=== PATIENT | female | born 2005 | race Caucasian/White ===

== ENCOUNTER 2025-02-04 08:07 | Outpatient (REF) | payer BC, SELFPAY ==
--- OUTSIDE RECORDS SUMMARY | 2025-02-04 09:10 | XMS_ITS | Encounter Summary ---
Author Organization [facility] Address [address] [place] [address] Phone Care Team Providers Care Institute Scientist Name Role Phone Leisa De Jesus MD Primary Care Provider [phone] Encounter Details Date Type Department Care Team (Late st Contact Info) Description 01/17/2016 Documentation [facility] Family Medicine [address] [place], [place] [id number] Family Medicine, Physician [address] [place], [place] [address] Social History Tobacco Use Types Packs/Day Years [...] on filedocumented in this encounter Care Teams Institute Scientist Relationship Specialty Start Date End Date Leisa De Jesus MD [address] [place] [address] PCP - General Pediatrics 04/14/19 05/28/24 documented as of this encounter
--- OUTSIDE RECORDS SUMMARY | 2025-02-04 09:10 | XMS_ITS | Clinical Summary ---
Author Organization [facility] Address [address] [place] [id number] Phone Care Team Providers Care Call Worker Name Role Phone Unavailable Primary Care Provider [...] Continue to follow with [facility], Margaret Noel HOUSE PARENT for further support/help. Assessment & Plan (07/18/2022 10:14 AM EDT): Patient with decreased motivation and energy in the context of poor sleep. Patient will benefit from using sleep hygiene strategies and short term intervention with [facility]. Patient is ready to address these issues. Strengths include insight and motivation. PLAN: 1. Follow up with [facility] 3 weeks 2. Patient goal is to [...] hygiene strategies and short term intervention with [facility]. Patient is ready to address these issues. Strengths include insight and motivation. PLAN: 1. Follow up with [facility] 2 weeks 2. Patient goal is to sleep better and improve energy and motivation. 3. Behavioral Recommendations: a. Review sleep tips b. Practice good self care including eating and exercise c. Keep follow up with [facility] Assessment & Plan (08/12/2021 1:52 PM EDT): [...] stop it. I will cc Margaret Noel, [facility], who sees Katty and they have [...] Margaret Noel- I will have the front office agent call mom to schedule these appts. Assessment [...] ibuprofen and soft brace. Has appointment at [facility] early Jul. ADHD (attention deficit hyperactivity disorder) [...] Type Department Care Team Description 01/22/2025 Telephone [facility] - [address] [address] Sapna Larsen MD Medical Records [...] Father Rocky Armendariz Sleep apnea Father Rocky Vasquezdeborah Anxiety disorder Mother Eden Solorzano has use d fluoxetine with good effect ADD / ADHD Sister Narcisa Armendariz Anxiety disorder Sister Narcisa Armendariz Relation Name Status Comments Father Rocky Armendariz Alive Father: Manuel pro and andrew, Asthma Maternal Grandfather Materna l grandfather: Diabetes mellitus, Liver disease Mother Eden Solorzano Alive Mother: Emmy shaw and well Other No family histo ry of Sudden /[place] under age 55, No family history of *Sudden /[place] under 55, No family history of Thrombophilia, [...] Completed 07/14/2019, 014 Procedures * Due to [place] state law, this organization might not be sharing sensitive test results. Procedure Name Priority Date/Time Associated Diagnosis Comments CHLAMYDIA AND GONORRHEA, AMPLIFIED Routine 08/12/2021 2:09 PM EDT Well adult exam from Last 3 Months or Most Recently Relevant to Health Maintenance Results * Due to [place] state law, this organization might not be sharing sensitive test results. * Chlamydia and Gonorrhoea, Amplified (08/12/2021 2:09 PM EDT) Chlamydia Trachomatis, DNA Probe NEGATIVE (NEG) [facility] Comment: No Chlamydia Trachomatis RNA detected in this patient's sample ? (REFERENCE RANGE/NORMAL VALUE: NOT DETECTED) ? Note: This test uses college associate- mediated amplification method to detect rRNA from C. Trachomatis URINE GC AMP PROBE NEGATIVE (NEG) [facility] Comment: No Neisseria Gonorrhoeae RNA detected in this patient's sample ? (REFERENCE RANGE/NORMAL VALUE: NOT DETECTED) ? NOTE: This test uses college associate-mediated amplification method to detect rRNA from N.Gonorrhoeae. [...] without risk of sexual abuse. Consult the [facility] if needed. Contact phone number . Therapeutic failure or success cannot be determined with the Aptima Combo2 assay since nucleic acid may persist following appropriate antimicrobial therapy. The Centers for Disease Control and Prevention (CDC) recommends confirmatory retesting using culture or a different nucleic acid amplification test when positive results occur, if indicated. Testing performed or reported by [facility], a Service of [facility], [address] [place] [address] Pete Connell MD, Digital Sales Representative [facility]# [id number] Urine 08/12/2021 2:09 PM EDT 08/12/2021 11:13 PM EDT us Leisa De Jesus MD LAB MICROBIOLOGY - GENERAL OR DERABLES Final Result [facility] from Last 3 Months or Most Recently Relevant to Health Maintenance
--- OUTSIDE RECORDS SUMMARY | 2025-02-04 09:11 | XMS_ITS | Encounter Summary ---
Author Organization [facility] Address [address] [place] [address] Phone Care Team Providers Care Installation Supervisor Name Role Phone Leisa De Jesus MD Primary Care Provider [phone] Encounter Details Date Type Department Care Team (Late st Contact Info) Description 04/30/2017 Documentation [facility] [address] [place], [place] [id number] Family Medicine, Physician [address] [place], [place] [address] Social History Tobacco Use Types Packs/Day Years [...] on filedocumented in this encounter Care Teams Installation Supervisor Relationship Specialty Start Date End Date Leisa De Jesus MD [address] [place] [address] PCP - General Pediatrics 04/14/19 05/28/24 documented as of this encounter
[2025-02-04 10:01] LABS: MANUAL DIFF FLAG NO
[2025-02-04 10:09] LABS: Basophils Percent Auto 0.5 % (0-2); Eosinophils Absolute Auto 0.1 X10*3/uL (0.0-0.4); Eosinophils Percent Auto 1.6 % (0-4); Hematocrit 41.4 % (37.0-47.0); Hemoglobin 13.5 g/dl (12.0-16.0); Imm Gran Abs Auto 0.03 X10*3/uL (0.00-0.03); Imm Gran Pct Auto 0.3 % (0.0-0.4); Lymphocytes Absolute Auto 1.9 X10*3/uL (1.2-4.9); Lymphocytes Percent Auto 21.6 % (20-40); Mean Corpuscular HGB Conc 32.6 g/dl (31.0-35.0); Mean Corpuscular Hemoglobin 27.9 pg (27.0-33.0); Mean Corpuscular Volume 85.5 fL (80.0-98.0); Mean Platelet Volume 9.9 fL (9.4-12.3); Monocytes Absolute Auto 0.5 X10*3/uL (0.1-1.2); Monocytes Percent Auto 5.8 % (2-11); Neutrophils Absolute Auto 6.2 x10*3/uL (2.0-8.3); Neutrophils Percent Auto 70.2 % (45-73); Platelet Count 253 X10*3/uL (160-400); Red Blood Count 4.84 X10*6/uL (4.20-5.50); Red Cell Distribution Width 13.7 % (11.0-16.0); White Blood Count 8.8 X10*3/uL (4.8-10.8)
[2025-02-04 10:45] LABS: Alanine Aminotransferase 36 U/L (0-31); Albumin Level 4.3 g/dL (3.5-5.0); Alkaline Phosphatase 71 U/L (39-117); Anion Gap 13 (12-20); Aspartate Amino Transferase 30 U/L (5-31); Bilirubin Total 0.6 mg/dL (0.0-1.0); Blood Urea Nitrogen 12 mg/dL (9-16); Calcium 9.2 mg/dL (8.4-10.2); Carbon Dioxide 25 mmol/L (22-29); Chloride 107 mmol/L (96-108); Cholesterol 136 mg/dL (<200); Estimated Glomerular Filt Rate > 60; Glucose Fasting 85 mg/dL (60-99); HDL Cholesterol 36 mg/dL (>40); LDL Cholesterol Calculated 84 mg/dL (<100); Potassium 3.7 mmol/L (3.3-5.1); Sodium 141 mmol/L (135-145); Total Protein 7.6 g/dL (6.5-8.0); Triglycerides 81 mg/dL (<150)
== END 2025-02-04 08:08 | disposition home or self-care (01) ==
LOC: HO.HMGCLDS 08:07
PROVIDERS: PCP Internal Medicine; Visit Provider Internal Medicine
DX: Z00.00 Encounter for general adult medical examination without abnormal findings (principal); F90.9 Attention-deficit hyperactivity disorder, unspecified type
CPT/HCPCS: 36415; 80053; 80061; 85025; 96127

== ENCOUNTER 2025-02-04 08:07 | Outpatient (AMB) | payer BC, SELFPAY ==
[2025-02-04 08:09] VITALS: BP 108/66; PULSE 83; RESP 20; TEMP 37.1; O2SAT 99; BMI 40.1
--- NOTE | 2025-02-04 08:09 | MHC.PC.OV ---
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 Intake Note: Pt is here today for New patient visit PE. 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 HPI Details Pt presents for [facility] SPECIALIST PE. [facility] Medical History (Updated 02/04/25 @ 12:43 by Radha Cardoza MD) Normal pelvic exam Annual physical exam ADHD (attention deficit hyperactivity disorder) Surgical History [place] teeth extracted Family History Father No problems noted. Mother No problems noted. 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 1. Little interest or pleasure in doing things: several days 2. Feeling down, depressed, or hopeless: not at all 3. Trouble falling or staying asleep, or sleeping too much: several days 4. Feeling tired or having little energy: more than half the days 5. Poor appetite or overeating: not at all 6. Feeling bad about yourself - or that you are a failure or have let yourself or your family down: not at all 7. Trouble concentrating on things, such as reading the newspaper or watching television: nearly every day 8. Moving or speaking so slowly that other people could have noticed. Or the opposite - being so fidgety or restless that you have been moving around a lot more than usual: not at all 9. Thoughts that you would be better off or of hurting yourself in some way: not at all Total score: 7 Depression Screening Interpretation: Negative Depression Screening Done: Yes 52940 - PHQ-9 Billing: Yes Source: Developed by Drs. Renan Reyez, Nasima Duarte, Wilberto Robles and colleagues, with an educational aman from [employer]. Thrive Questionnaire Date Thrive assessed: 02/04/25 I am a: Patient What is your living situation today?: I have a steady place to live Within the past 12 months, did the food you bought not last and you didn't have the money to get more?: Never true Within the past 12 months, did you worry whether your food would run out before you got money to buy more?: Never true Do you have trouble paying for medicines?: No Do you have trouble getting transportation to medical appointments?: No Do you have trouble paying your heating and electricity bill?: No Do you have trouble taking care of your child, family member or friend?: No Do you have trouble with day-to-day activities such as bathing, preparing meals, shopping, managing finances, etc.?: No Are you currently unemployed and looking for a job?: No Are you interested in more education?: Yes Please select the resources that you would like help with: None Currently or been in a relationship where the following occur: No concerns reported THRIVE Score: 0 AUDIT C Alcohol Use Questionnaire (AUDIT-C) 1. How often do you have a drink containing alcohol?: 2-4 times a month 2. How many drinks containing alcohol do you have on a typical day when you are drinking?: 3 or 4 3. How often do you have six or more drinks on one occasion?: Less than monthly Total Score: 4 NYASIA-7 AMB Questionnaire NYASIA-7 Date NYASIA - 7 assessed: 02/04/25 Feeling nervous, anxious, or on edge: 3 = Nearly every day Not being able to stop or control worryin = Nearly every day Worrying too much about different things: 3 = Nearly every day Trouble relaxin = Nearly every day Being so restless that it is hard to sit still: 3 = Nearly every day Becoming easily annoyed or irritable: 1 = Several days Feeling afraid as if something awful might happen: 2 = More than half the days Total NYASIA-7 score (0-4 normal; 5-9 mild; 10-14 moderate; 15-21 severe): 18 Source: Developed by Drs. Renan Reyez, Nasima Duarte, Wilberto Robles and colleagues, with an educational aman from [employer]. NYASIA-7 Assessment Billing NYASIA-7 Assessment Tool: NYASIA-7 Assessment 66817 Review of Systems Const All systems reviewed & are unremarkable except as noted in HPI and below Reports no additional complaints Eyes Reports no additional complaints ENT Reports no additional complaints Card Reports no additional complaints Resp Reports no additional complaints GI Reports no additional complaints Reports no additional complaints Physical exam (Primary Care) Vital Signs: Last Vital Signs Temp 98.7 F 02/04/25 08:09 Pulse 83 02/04/25 08:09 Resp 20 02/04/25 08:09 BP 108/66 02/04/25 08:09 Pulse Ox 99 02/04/25 08:09 Oxygen Delivery Method Room Air 02/04/25 08:09 BMI result Body Mass Index 40.1 Tobacco/Smoking Status: Tobacco use Status Tobacco use date assessed 02/04/25 02/04/25 08:21 Patient Tobacco Use Status Current everyday Tobacco 02/04/25 08:34 e-Cigarette/Vaping Use Currently Using 02/04/25 08:34 PHQ-9: PHQ-9 Score PHQ-9: Total score 7 02/04/25 08:31 Depression Screening Interpretation: Negative Thrive Assessment: Date of Thrive Assessment Date Thrive assessed 02/04/25 02/04/25 08:21 Currently or been in a relationship where the following occur: No concerns reported Const General: no acute distress HENMT Head: Yes normal to inspection Ears: hearing grossly normal bilaterally General nose exam: Normal external nose present Face and sinus: Yes normal facial exam Mouth: Normal oral and palatal mucosa present Throat: Yes posterior oropharynx normal Eyes General: appearance normal, both eyes and all related structures Neck Neck: Yes no lymphadenopathy and Yes supple Resp Effort & Inspection: normal respiratory effort Auscultation: clear to auscultation bilaterally Cardio Rhythm: regular rhythm Heart sounds: S1 normal heart sound present and S2 normal heart sound present GI Inspection: Yes normal to inspection Palpation (GI): Soft to palpation Percussion: Yes normal to percussion Auscultation: normal bowel sounds Coding Level of Care Code Est Pt Prev Care 18-39y(71630) Diagnoses Annual physical exam Z. Normal pelvic exam Z. ADHD (attention deficit hyperactivity disorder) F90.9 Additional Codes NYASIA-7 Assessment Billing - NYASIA-7 Assessment Tool: NYASIA-7 Assessment 70861 ([id number]) PHQ-9 - 65383 - PHQ-9 Billing: Yes ([id number]) Assessment & Plan Assessment & Plan (1) Annual physical exam: Code(s): Z. - Encounter for general adult medical examination without abnormal findings Category: Medical Plan: Well-balanced diet regular physical activity discussed with the patient she will return for fasting blood work (2) Normal pelvic exam: Comment: [employer] 2023 Code(s): Z - Encounter for gynecological examination (general) (routine) without abnormal findings Category: Medical Plan: Follow-up with GI (3) ADHD (attention deficit hyperactivity disorder): Comment: Used to take medication Code(s): F90.9 - Attention-deficit hyperactivity disorder, unspecified type Category: Medical Plan: Follow-up with ADHD Clinic as needed Orders: Orders Comprehensive Allen. Panel Fast Today Z00.00 - Encounter for general adult medical examination without abnormal findings, Z419 - Encounter for gynecological examination (general) (routine) without abnormal findings Lipid Panel Today Z00.00 - Encounter for general adult medical examination without abnormal findings, Z419 - Encounter for gynecological examination (general) (routine) without abnormal findings Complete Blood Count Auto Diff Today Z00.00 - Encounter for general adult medical examination without abnormal findings, Z419 - Encounter for gynecological examination (general) (routine) without abnormal findings UA w Microscopic Today Z00.00 - Encounter for general adult medical examination without abnormal findings, Z419 - Encounter for gynecological examination (general) (routine) without abnormal findings
--- OUTSIDE RECORDS SUMMARY | 2025-02-04 08:16 | XMS_ITS | Encounter Summary ---
Author Organization [facility] Address [address] [place] [address] Phone Care Team Providers Care District Customs Director Name Role Phone Leisa De Jesus MD Primary Care Provider [phone] Encounter Details Date Type Department Care Team (Late st Contact Info) Description 01/17/2016 Documentation [facility] Family Medicine [address] [place], [place] [id number] Family Medicine, Physician [address] [place], [place] [address] Social History Tobacco Use Types Packs/Day Years Used Date Smoking Tobacco: Never Assessed Comments Unknown Sex and Gender Information Value Date Recorded Sex Assigned at Female 07/14/2019 2:13 PM EDT Legal Sex Female 5:16 PM EDT Gender Identity Female 07/14/2019 2:13 PM EDT Sexual Orientation Bisexual 10/26/2022 10 :41 AM EST documented as of this encounter Plan of Treatment Not on file documented as of this encounter Visit Diagnoses Not on filedocumented in this encounter Care Teams District Customs Director Relationship Specialty Start Date End Date Leisa De Jesus MD [address] [place] [address] PCP - General Pediatrics 04/14/19 05/28/24 documented as of this encounter
--- OUTSIDE RECORDS SUMMARY | 2025-02-04 08:16 | XMS_ITS | Encounter Summary ---
Author Organization [facility] Address [address] [place] [address] Phone Care Team Providers Care Arc And Gas Welder Name Role Phone Leisa De Jesus MD Primary Care Provider [phone] Encounter Details Date Type Department Care Team (Late st Contact Info) Description 04/30/2017 Documentation [facility] [place] [address] [place], [place] [id number] Family Medicine, Physician [address] [place], [place] [id number] Social History Tobacco Use Types Packs/Day Years Used Date Smoking Tobacco: Never Comments:Never smoker Comments Unknown Sex and Gender Information Value [...] on filedocumented in this encounter Care Teams Arc And Gas Welder Relationship Specialty Start Date End Date Leisa De Jesus MD [address] [place] [address] PCP - General Pediatrics 04/14/19 05/28/24 documented as of this encounter
--- OUTSIDE RECORDS SUMMARY | 2025-02-04 08:16 | XMS_ITS | Clinical Summary ---
Author Organization [facility] Address [address] [place] [phone] Phone Care Team Providers Care Striper Spray Gun Name Role Phone Unavailable Primary Care Provider Unavailabl e Allergies No known active allergies Medications Nexplanon 68 MG implant 0 Active IBUPROFEN PO Take 600 mg by mouth. Active hydrocortisone 2.5 % ointmentIndicat ions:Rash on lips Apply topically 2 (two) times a day as needed for rash. 20 g 1 3 Active Additional Information Patient not taking.Reported on 12/26/2022 escitalopram (Lexapro) 10 MG tabletIndicatio ns:Adjustment disorder with mixed anxiety and depressed mood Take 1 tablet (10 mg total) by mouth every morning. 30 tablet 1 3 Active hydrOXYzine 25 MG tabletIndicatio ns:Adjustment disorder with mixed anxiety and depressed mood,Sleep concern Take 1-2 tablets (25-50 mg total) by mouth nightly as needed for anxiety (insomnia). Use prior to bedtime - this will help with itching and sleep. 30 tablet 1 4 Active Active Problems Problem Noted Date Diagnosed Date Nicotine use 10/26/2022 Overview (03/15/2023): 10/30- vaping daily. Counseled (pre-contemplative) and recommended [facility] - she will think about it and let me know if she's interested so I can place the referral. 03/15/2023- [facility] referral. Assessment & Plan (10/26/2022 11:06 AM EST): Counseled today re risks, which she expressed understandingn about, but still in pre-contemplative stage. I recommended [facility] - she will think about it and let me know if she's interested so I can place the referral. Low HDL (under 40) 09/07/2021 Overview (09/07/2021): 08/28- HDL 35, other lipids nl. Snoring 08/12/2021 Overview (02/10/2022): With difficulty waking in the morning. Dad with GLENNY. 02/01/22- PSG without GLENNY. Assessment & Plan (08/12/2021 1:57 PM EDT): PSG ordered today. Nexplanon in place 01/08/2020 Overview (01/08/2020): Placed at [facility] 01/08/20. Assessment & Plan (07/20/2022 8:54 AM EDT): Happy with Nexplanon, asking about when she'll need to have it removed. Assessment & Plan (08/05/2020 3:18 PM EDT): Going well, amenorrhea, happy with this. Allergic rhinitis 12/01/2019 Overview (12/01/2019): Flonase trial 11/27 Dysmenorrhea 07/14/2019 Overview (08/05/2020): NSAIDs and heating pads. H/o OCPs, but no significant improvement, off them early 2018. Improved with Nexplanon. Assessment & Plan (07/20/2022 9:04 AM EDT): Much improved with Nexplanon. Assessment & Plan (08/05/2020 3:59 PM EDT): Much better with Nexplanon. Adjustment disorder with mixed anxiety and depre ssed mood 09/10/2018 Overview (04/13/2023): Seasonal- late fall-early Spring. Saw a therapist at school, but inconsistently. Barrier is related to in-school and in-home therapy needs. Was on fluoxetine 11/06/18 through January 2019 with significant improvement in mood, but self-discontinued. Fluoxetine re-started 08/27, weaned off 01/26. Started seeing Margaret Noel MANNY 09/26 (learn coping skills such as relaxation, sleep hygiene), with significant improvement. Fluoxetine re-started 07/29. 12/26/21- wean off fluoxetine per Katty preference. Still not interested in therapy, will call if that changes. 03/15/2023- started on Lexapro (with improvement), referred to [facility] again (but unable to keep appt due to work schedule) 07/06/22 consult for sleep. Full Evaluation scheduled. Assessment & Plan (04/13/2023 12:57 PM EDT): Katty is happy with the Lexapro at 10mg, and would like to continue at this dose. Rx done for Lexapro 10mg qday. Unlikely to follow through with [facility] referral due to schedule limitations, but she says she's looking into other options for therapy. F/u with me in ~2 months with GAD7 and PHQ9. Assessment & Plan (03/15/2023 12:40 PM EDT): After counseling the patient/family on risks and benefits of SSRIs, we will start sertraline at a trial dose of 12.5mg/day for a week, then I will have them called by a staff member in a week, and if they are tolerating the test dose well, without any significant side effects, we will double the dose to 25mg/day. The family knows to call immediately for significant side effects, especially significant agitation or any new thoughts about self-harm. F/u with me virtually in 4 weeks- appt 04/13/23 @ 12:45pm. Referred again to [facility] as interested in virtual counseling and I strongly encouraged it today, especially to cope with stressors as well as given daily vaping. Assessment & Plan (02/20/2023 3:12 PM EDT): Doing okay, though still with significant stressors. Encouraged therapy again, and she says she's looking into this. Not interested in meds at this time. Assessment & Plan (12/26/2022 8:45 AM EDT): While she doesn't think the fluoxetine is doing much, her GAD7 and PHQ9 scores are so significantly improved. She wants to stop the fluoxetine, and so we discussed weaning off of it (going down to 20mg/day x1 week, then 10mg/day x1 week, then off). Discussed following up, and she prefers not to make an appt and instead to call if she needs anything. Also discussed psychotherapy again, and she prefers to hold off, and she's aware she can call if she's interested at some point. Assessment & Plan (10/26/2022 11:05 AM EST): Doing well on fluoxetine, no SEs, but does feel like she could use a higher dose, so will increase to 30mg/day. F/u 2 months with GAD7 and PHQ9. Also encouraged psychotherapy, and recommended [facility]. She will think about it and let me know if she's interested so I can place the referral. Assessment & Plan (07/20/2022 9:04 AM EDT): After counseling Katty on risks and benefits of SSRIs, we will start fluoxetine at 20mg/day for a week (she has been on this dose multiple times in the past and it works well for her), then I will have her called by a staff member in 2 weeks to check on her. She knows to call immediately for significant side effects, especially significant agitation or any new thoughts about self-harm. F/u with me in ~4 weeks. Continue to follow with [facility], Margaret Noel HEAD CHOPPER for further support/help. Assessment & Plan (07/18/2022 10:14 AM EDT): Patient with decreased motivation and energy in the context of poor sleep. Patient will benefit from using sleep hygiene strategies and short term intervention with [facility]. Patient is ready to address these issues. Strengths include insight and motivation. PLAN: 1. Follow up with [facility] 3 weeks 2. Patient goal is to sleep better and improve energy and motivation. 3. Behavioral Recommendations: a. Review sleep tips b. Practice good self care including eating and exercise c. Try meditation apps Assessment & Plan (07/06/2022 10:27 AM EDT): Patient with decreased motivation and energy in the context of poor sleep. Patient will benefit from using sleep hygiene strategies and short term intervention with [facility]. Patient is ready to address these issues. Strengths include insight and motivation. PLAN: 1. Follow up with [facility] 2 weeks 2. Patient goal is to sleep better and improve energy and motivation. 3. Behavioral Recommendations: a. Review sleep tips b. Practice good self care including eating and exercise c. Keep follow up with [facility] Assessment & Plan (08/12/2021 1:52 PM EDT): Doing really well right now, off fluoxetine. Assessment & Plan (02/14/2021 11:43 AM EDT): Katty is really doing well, now off the fluoxetine for several weeks. Continue off the fluoxetine. I'm proud of her for making the changes she's made (sleep, meditation, exercise), and will continue to support her in these and any further needs. She is due for a well visit in July, and I offered a f/u appt sooner to check in, but she feels she is doing well and she'd rather just call if she feels she needs that. Assessment & Plan (12/30/2020 12:10 PM EDT): Katty is really doing well, which is great and she is interested in trialing off of her SSRI. We discussed need to wean it, so she plans to take one more week at her current dose (20mg) and then I ordered 7 days of fluoxetine 10mg that she should take, and then she will stop it. I will cc Margaret Noel, [facility], who sees Katty and they have an upcoming appt 01/13/21. I'm proud of her for making the changes she's made (sleep, mediation), and will continue to support her in these and any further needs. We made a f/u appt in about 6 weeks (02/14/21) and I will repeat GAD7 and PHQ9 at that time. Assessment & Plan (10/28/2020 11:40 AM EST): I am really proud of changes Katty has made around exercise and sleep and an overall healthier lifestyle. I did discuss a goal of even more sleep if she can move her bedtime back another hour (given she's waking up so early and should try to get 8-9 hours of sleep per night). We discussed meditation again, which she is thinking she may start soon. She will continue to see LATHA Arrington, learning coping skills, including relaxation, and communication skills. Next visit with her is on 11/18/20. Katty is doing well on fluoxetine 20mg, no SEs identified and mood has improved significantly (significant decrease in her anxiety and depression). Continue fluoxetine 20mg, last Rx done 10/13/20, so Katty will call when due for next Rx. f/u 2 months for virtual med check appt- Katty aware to call for this appt as soon as we are off the virtual visit. Assessment & Plan (09/06/2020 2:54 PM EST): Patient is doing well on the low-dose fluoxetine, no SEs identified and mood has improved some already. Will increase dose to 20mg, f/u 2 weeks for virtual med check appt- patient aware to call for this appt as soon as we are off the virtual visit. We discussed meditation, and she is interested in this. I recommended apps where she can do a free trial (as all seem to make you pay eventually), so she should try this daily. Patient has appt with LATHA Arrington, on Sunday. Assessment & Plan (08/19/2020 11:47 AM EST): After counseling the patient/family on risks and benefits of SSRIs, we will start fluoxetine at a trial dose of 10mg/day for a week, then I will have them called by Sharon Malik in a week to check on them. The family knows to call immediately for significant side effects, especially significant agitation or any new thoughts about self-harm. F/u with me virtually in 2 weeks. Given mom's concerns about patient able to take med daily but patient doesn't want mom asking her about it, patient agrees to keep a calendar to ashley off taking med each day. I can also see this at our visits. Patient also to make appt with Margaret Noel- I will have the front end engineer call mom to schedule these appts. Assessment & Plan (08/05/2020 4:01 PM EDT): Significant depression (and likely anxiety) today. No active SI. Discussed pharmacotherapy, open to this, though not currently. Discussed psychotherapy/counseling- will refer to [facility]. Advised to make appt with me (virtual) to discuss re-started SSRI if interested). Referral to [facility] for further support/help with behaviors- warm hand-off done with Margaret Noel and patient aware to schedule appt with her. Help address Anxiety, Evaluate for Depression, Needs help with coping skills, Family disruption - needs support Assessment & Plan (07/14/2019 2:25 PM EDT): Stopped the fluoxetine ~6 months ago. It was helpful, but she was curious if it would be okay without the medication. She's happy with how she's doing and isn't interested in re-starting the medications. No SI, cutting. No access to guns. Of note, PHQ9 = 8 today. Assessment & Plan (12/30/2018 12:44 PM EDT): Has continuous improvement in symptoms. NYASIA score down from highest of 14 to 5 today. Denies any side effects. Continue to search for regular therapist. ( Insurance is a barrier, many mental health providers don't accept [employer]) Continue Prozac at 10 mg daily. Follow up in 6 months with new PCP for repeat evaluation. Assessment & Plan (12/09/2018 11:15 AM EST): Symptoms are improving. NYASIA score trending down from 14 to 8. Increase prozac to 10 mg daily ( up from 10 mg every other day), if you note agitation go back to 10 mg every other day. Follow up in 1 month for repeat NYASIA screen. Assessment & Plan (11/06/2018 11:22 AM EST): Starting Prozac today 10 mg every other day. Discussed potential side effects and black box warning. Advised parents to call with update in 2 weeks (or sooner if needed) follow up in 1 month for re-evaluation. Continue self management strategies and seeing therapist in school. Pain in both knees 06/30/2017 Overview (07/14/2019): PHYSICAL THERAPY. Just has intermittent pain now. 07/26. Assessment & Plan (06/30/2017 2:48 AM EDT): Better with ibuprofen and soft brace. Has appointment at [facility] early Jul. ADHD (attention deficit hyperactivity disorder) 08/26/2015 Overview (07/14/2019): Used meds when she was young, improved a lot as a teenager. Self-manages symptoms. 07/26 BMI 36.0-36.9,adult 08/13/2012 Overview (09/07/2021): Labs ok 07/26, 08/28 (other than low HDL). Weight decreasing with some lifestyle (and mood) changes . Assessment & Plan (02/14/2021 11:42 AM EDT): Katty has made some great healthy choices- less fast food and sugary drinks, eating more meals as opposed to snacking, and I continued to encourage these as well as really limiting the sugary and artificially sweetened drinks. Will continue to follow and check labs in the fall at her well visit. Assessment & Plan (08/05/2020 3:25 PM EDT): Discussed limiting sugary drinks. I think her poor diet and lack of exercise are tied into her depression and anxiety, so difficult to do much about right now. Assessment & Plan (07/14/2019 2:22 PM EDT): Discussed cutting out soda, also cutting down on ice cream. Limited physical activity, will walk/run with dog at Patient's father's house. Will screen for DM, dyslipidemia and NAFLD with AST/ALT per AAP recs. Plan to screen q2yrs if continues to be obese. Assessment & Plan (09/10/2018 10:48 AM EST): Eliminate sugary drinks. PTSD (post-traumatic stress disorder) 08/10/2010 Resolved Problems Problem Noted Date Diagnosed Date Resolved Date Excessive and frequent menst ruation with irregular cycle 04/03/2017 07/14/2019 Assessment & Plan (09/11/2018 8:59 AM EST): Having break through bleeding on low estrogen pill will change in higher dose of estrogen 0.35 up from 0.25 of estradiol. Encounters Date Type Department Care Team Description 01/22/2025 Telephone [facility] - [address] [address] Sapna Larsen MD Medical Records from Last 3 Months Immunizations Immunization Administration Dates Next Due COVID-19 Pfizer, bivalent, 12+ years 07/20/2022 COVID-19 Pfizer, monovalent, 12+ years 1,08/12/2021 DTaP 5 07/02/2007, 5,2003,09/10,2003 H1N1 10/28/2009,08/30/2009 HPV Vaccine 9 Valent 10/06/2016,03/17/2016,01/10 Hep A, ped/adol 03/17/2016,08/26/2015 Hep B, ped/adol 02/18/2004,2003,2003 Hib (HbOC) 08/30/2004 Hib (PRP-T) 2003,2003,2003 IPV 07/02/2007, 4,2003,07/14 Influenza Split 08/07/2011 Influenza, injectable, quadr ivalent, preservative free 07/20/2022,08/12/2021,08/05/2020,07/14,09/10/2018,10/06/2016,08/26/2015 Influenza, injectable, trivalent 009,07/08/2008,07/02/2007,09/18,11/15/2004,08/30/2004 Influenza, intranasal, quadrivalent 06/09/2014,1 11/24/2012 Influenza, intranasal, trivalent 07/04/2012,/0 02/2010 MMR 06/01/2004 MMRV 07/02/2007 Meningococcal Conj (Menactra) MCV4P 07/14/2019,0 06/09/2014 Pneumococcal Conjugate 08/30/2004,2003,2003,07/14 Tdap 06/09/2014 Varicella 06/01/2004 Family History Medical History Relation Name Comments ADD / ADHD Father Rocky Armendariz Sleep apnea Father Rocky Vasuqezdeborah Anxiety disorder Mother Eden Solorzano has use d fluoxetine with good effect ADD / ADHD Sister Narcisa Armendariz Anxiety disorder Sister Narcisa Armendariz Relation Name Status Comments Father Rocky Armendariz Alive Father: Manuel pro and andrew, Asthma Maternal Grandfather Materna l grandfather: Diabetes mellitus, Liver disease Mother Eden Solorzano Alive Mother: Emmy shaw and well Other No family histo ry of Sudden /PA under age 55, No family history of *Sudden /PA under 55, No family history of Thrombophilia, Family history of Heart disease, No family history of *Thrombophilia, Family history of CVA (Stroke), No family history of Deafness, No family history of Dental caries, No family history of Seizure disorder, No family history of Developmental dislocation of hip, No family history of Strabismus, Family history of Migraines, Family history of Cancer, lung, Family history of Obesity, No family history of Hyperlipidemia Paternal Grandfather Paterna l grandfather: ETOH, Paternal Grandmother Paterna l grandmother: Diabetes mellitus Sister Narcisa Armendariz Alive Sister: Manuel pro and andrew Social History Tobacco Use Types Packs/Day Years Used Date Smoking Tobacco: Never Smokeless Tobacco: Never Comments:Never smoker Alcohol Use Standard Drinks/Week Comments No 0 (1 standard drink = 0.6 oz pur e alcohol) Hunger/Food Answer Date Recorded In the last 12 months, did y ou or your family ever eat less than you felt you should because there wasn't enough money for food? No 10/25/2022 Stable Housing Answer Date Recorded Are you worried that in the next 2 months you may not have stable housing? No 10/25/2022 Transportation Concerns Answer Date Rec orded In the last 12 months, have you or your family ever had to go without healthcare because you didn't have a way to get there? No 10/25/2022 Hazards in Home Answer Date Recorded Think about the place you li ve. Do you have problems with any of the following? Pests (mice or roaches), mold, no/not working smoke detectors, water leaks, no window guards. No 2022 Financing Utilities Answer Date Recorde d In the last 12 months, has t he electric, gas, oil, or water company threatened to shut off your services in your home? No 10/25/2022 Safety at Home Answer Date Recorded Are you or your family worried about feeling saf e in your home? No 10/25/2022 Outside Support Answer Date Recorded Do you feel that you need mo re support from other people or programs to help you care for yourself or your family? No 10/25/2022 Understanding Health Concerns Answer Da te Recorded Do you need help understandi ng your or your child's healthcare needs (diagnosis, medications, plan, etc.)? No 10/25/2022 Financing Health Concerns Answer Date R ecorded In the last 12 months, was t here a time when your child needed to see a doctor or get medications or supplies but could not because of cost? No 10/25/2022 Missing School or Work Answer Date Riley rded Did you or your child miss s chool or work because of a health problem that could have been avoided? No 10/25/2022 Comments No Sex and Gender Information Value Date Recorded Sex Assigned at Female 07/14/2019 2:13 PM EDT Legal Sex Female 5:16 PM EDT Gender Identity Female 07/14/2019 2:13 PM EDT Sexual Orientation Bisexual 10/26/2022 10 :41 AM EST Last Filed Vital Signs Vital Sign Reading Time Taken Comments Blood Pressure 130/72 01/12/2023 3:38 PM EDT man ual Pulse 118 01/12/2023 3:37 PM EDT Temperature 37 ??C (98.6 ??F) 02/20/2023 2:46 PM EDT Respiratory Rate - - Oxygen Saturation - - Inhaled Oxygen Concentration - - Weight 111 kg (244 lb 12.8 oz) 02/20/2023 2:46 P M EDT Height 168.9 cm (5' 6.5 ) 10/26/2022 10:03 AM ES T Body Mass Index 38.92 10/26/2022 10:03 AM EST Plan of Treatment Health Maintenance Due Date Last Done Comments Men B Vaccine (1 of 2 - Standard) 2019 Influenza Vaccines (#1) 2024 07/20/20, 08/12/2021, 08/05/2020, Additional history exists COVID-19 Vaccine (4 - 2023-2 5 season) 2024 07/20/2022, 09/05/2021, 08/12/2021 DTaP,Tdap,and Td Vaccines (7 - Td or Tdap) 06/09/2024 06/09/2014, 07/02/2007, 11/15/2004, Additional history exists Hepatitis B Vaccines Completed 02/18/2004, 2003, 2003 HIB Vaccines Completed 08/30/2004, 11/08, 2003, Additional history exists Pneumococcal Vaccine Completed 08/30/2004, 2003, 2003, Additional history exists IPV Vaccines Completed 07/02/2007, 02/05, 2003, Additional history exists MMR Vaccines Completed 07/02/2007, 06/01/2004 Varicella Vaccines Completed 07/02/2007, 06/01/2004 Hepatitis A Vaccines Completed 03/17/2016, 08/26/20 15 HPV Vaccines Completed 10/06/2016, 03/08, 01/11/2016 Meningococcal Vaccine Completed 07/14/2019, 014 Procedures * Due to [place] state law, this organization might not be sharing sensitive test results. Procedure Name Priority Date/Time Associated Diagnosis Comments CHLAMYDIA AND GONORRHEA, AMPLIFIED Routine 08/12/2021 2:09 PM EDT Well adult exam from Last 3 Months or Most Recently Relevant to Health Maintenance Results * Due to [place] state law, this organization might not be sharing sensitive test results. * Chlamydia and Gonorrhoea, Amplified (08/12/2021 2:09 PM EDT) Chlamydia Trachomatis, DNA Probe NEGATIVE (NEG) [facility] Comment: No Chlamydia Trachomatis RNA detected in this patient's sample ? (REFERENCE RANGE/NORMAL VALUE: NOT DETECTED) ? Note: This test uses medical transcriptionist- mediated amplification method to detect rRNA from C. Trachomatis URINE GC AMP PROBE NEGATIVE (NEG) [facility] Comment: No Neisseria Gonorrhoeae RNA detected in this patient's sample ? (REFERENCE RANGE/NORMAL VALUE: NOT DETECTED) ? NOTE: This test uses medical transcriptionist-mediated amplification method to detect rRNA from N.Gonorrhoeae. A negative result does not preclude infection. In the case of a negative urine result, testing of an endocervical(female) or urethral (male) specimen is recommended if there is high clinical suspicion of infection. Due to very high sensitivity of Nucleic Acid Amplification Test, false positive results may occur. Therefore, specimen handling is extremely important. In patients in whom the disease is unlikely, additional sample for testing should be considered after an initial positive result. The performance characteristics of this test have not been evaluated in children. The Aptima Combo2 assay is not intended for the evaluation of suspected sexual abuse or for other medico-legal indications. The ordering provider should assess if the patient had consensual sex without risk of sexual abuse. Consult the [facility] if needed. Contact phone number . Therapeutic failure or success cannot be determined with the Aptima Combo2 assay since nucleic acid may persist following appropriate antimicrobial therapy. The Centers for Disease Control and Prevention (CDC) recommends confirmatory retesting using culture or a different nucleic acid amplification test when positive results occur, if indicated. Testing performed or reported by [facility], a Service of [facility], [address] [place] [address] Pete Connell MD, Embedded Software Developer [facility]# [id number] Urine 08/12/2021 2:09 PM EDT 08/12/2021 11:13 PM EDT us Leisa De Jesus MD LAB MICROBIOLOGY - GENERAL OR DERABLES Final Result [facility] from Last 3 Months or Most Recently Relevant to Health Maintenance
== END 2025-02-04 09:06 | disposition home or self-care (01) ==
LOC: HO.HMCC 08:08
PROVIDERS: Visit Provider Internal Medicine
DX: Z00.00 Encounter for general adult medical examination without abnormal findings (principal); Z01.419 Encounter for gynecological examination (general) (routine) without abnormal findings; F90.9 Attention-deficit hyperactivity disorder, unspecified type